=== PATIENT | female | born 1980 | race Caucasian/White ===

== ENCOUNTER 2017-12-09 17:16 | Emergency (ER) | payer BC ==
--- NOTE | 2017-12-09 18:16 | EDM.PDOC ---
ED HPI GENERAL MEDICAL PROBLEM - General Chief Complaint: Syncope Stated Complaint: SYNCOPE Time Seen by Provider: 12/09/17 18:15 Source of Information: Reports: Patient History Limitations: Reports: No Limitations - History of Present Illness INITIAL COMMENTS - FREE TEXT/NARRATIVE: 37-year-old female presents to the ED with a near syncopal-like event that occurred while he was sitting with family members in [place] they had ordered a meal and had not yet arrived but they were eating nodules and cheese. They were laughing and having a good time. Suddenly she started developed a blank stare became cool clammy and pallid. She stopped speaking. Family members noticed right away that something was not right. Patient also appreciated that she was not feeling right. She had a pressure sensation in her chest and a feeling of air hunger. decision was made to pack up there meal and make their way to the hospital. She was able to walk out of the restaurant on her own volition without feeling dizzy or lightheaded. She states was a good half far before she started to feel back to normal. His not known to be diabetic. She's had multiple sclerosis since 2005. No recent changes in treatment. She has no known autonomic nervous system dysfunction. Of note she underwent a laparoscopic- assisted vaginal hysterectomy on November 21. She had some bleeding per vagina presumably from the vaginal cuff for good 1012 days afterwards. She was advised to slow down her level of activity. She's had superficial thrombophlebitis in her left leg 3 but no true DVT. On away. Bowel function is normal. She is not known to have urinary tract infections and never lost control of bowel or bladder function. Does not have to use a gait aid. No visual acuity changes. No headache at this time. No nausea vomiting. she states the beeding per vagina sems tohav Onset: Today Onset Date: 12/09/17 Onset Time: 16:40 Duration: Minutes: Location: Reports: Generalized (Near syncopal-like event.) Quality: Reports: Other (No pain but discomfort in her chest or her sense of air hunger feeling hot) Severity: Moderate (prickly for a period of time) Improves with: Reports: Other Worsens with: Reports: None (Has improved spontaneously and now feels. Well back to normal.) Context: Reports: Other (Sitting and eating when she developed symptoms of like she was going to pass out.). Denies: Activity, Exercise, Lifting, Sick Contact , Trauma Associated Symptoms: Reports: Malaise, Shortness of Breath, Weakness ( Sensation like she was going to pass out initially. She never did however.). 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 ) - Related Data Allergies Allergy/AdvReac Type Severity Reaction Status Date / Time erythromycin base Allergy UNKNOWN Verified 12/09/17 17:45 [Erythromycin Base] BAND-AID Allergy UNKNOWN Uncoded 12/09/17 17:45 Home Meds: Home Meds Aspirin 1 tab PO DAILY 01/16/15 [History] Biotin 1 tab PO DAILY 01/16/15 [History] Dimethyl Fumarate [Tecfidera] 1 cap PO DAILY 12/09/17 [History] Ibuprofen 800 mg PO Q8HR PRN 12/09/17 [History] Vitamin E 1 cap PO DAILY 12/09/17 [History] oxyCODONE 0 mg PO Q4HR PRN 12/09/17 [History] Past Medical History Other Cardiovascular History: superficial blood clots to leg Neurological History: Reports: Other (See Below) Other Neuro History: MS diagnosed in 2005. She initially was treated with beta interferon but has been off of this for at least 2 years. - Past Surgical History Female Surgical History: Reports: Hysterectomy Musculoskeletal Surgical History: Reports: Other (See Below) Other Musculoskeletal Surgeries/Procedures:: MS Social & Family History - Tobacco Use Smoking Status *Q: Never Smoker - Caffeine Use Caffeine Use: Reports: Coffee, Soda - Recreational Drug Use Recreational Drug Use: No - Living Situation & Occupation Living situation: Reports: Single Occupation: Employed ED ROS GENERAL - Review of Systems Review Of Systems: See Below Constitutional: Reports: Malaise, Weakness, Fatigue. Denies: Fever, Chills, Night Sweats, Diaphoresis, Decreased Appetite, Weight Loss, Weight Gain HEENT: Reports: Hearing Loss (Impaired hearing left ear.) Respiratory: Reports: Shortness of Breath ( Out where an aid.). Denies: Wheezing, Pleuritic Chest Pain ( transiently now feels back to normal. ), Cough , Sputum, Hemoptysis Cardiovascular: Reports: Lightheadedness. Denies: Chest Pain, Blood Pressure Problem, Claudication, Dyspnea on Exertion, Edema, Orthopnea, Palpitations Endocrine: Reports: Fatigue (While in the restaurant today.) GI/Abdominal: Reports: Abdominal Pain (Still little tender around the umbilicus where she had laparoscopic-assisted vaginal hysterectomy 3 weeks ago.). Denies : Constipation, Diarrhea, Decreased Appetite, Distension, Flatus, Hematemesis, Hematochezia, Melena, Mucous in Stool, Nausea, Stool Incontinence, Vomiting, Other : Reports: Frequency. Denies: Dysuria Musculoskeletal: Reports: Joint Pain (Some sometimes knees and low back pain.) Skin: Reports: Pallor Psychiatric: Reports: No Symptoms Hematologic/Lymphatic: Reports: No Symptoms Immunologic: Reports: No Symptoms - Physical Exam Exam: See Below Exam Limited By: No Limitations General Appearance: Alert, WD/WN, No Apparent Distress, Mild Distress Eye Exam: Bilateral Eye: Normal Inspection, Other (Peripheral margins are slightly pallid.) Throat/Mouth: Normal Inspection, Normal Lips, Normal Teeth, Normal Oropharynx Head Exam: Atraumatic, Normocephalic Neck: Normal Inspection, Supple, Non-Tender, Full Range of Motion. No: Lymphadenopathy (L), Lymphadenopathy (R) Respiratory/Chest: No Respiratory Distress, Lungs Clear, Normal Breath Sounds, No Accessory Muscle Use, Other Cardiovascular: Normal Peripheral Pulses (O2 sats are 100% on room air. Respiratory rate of 18/m.), Regular Rate, Rhythm, No Edema, No Gallop, No Murmur GI/Abdominal: Normal Bowel Sounds, Soft, No Organomegaly, No Mass, Tender ( Slight tenderness around the umbilical laparoscopic incision but it is healing well.) Neuro Exam (Abbreviated): Alert, Oriented, CN II-XII Intact, Normal Cognition, Normal Gait, No Motor/Sensory Deficits Back Exam: Normal Inspection, Full Range of Motion. No: CVA Tenderness (L), CVA Tenderness (R) Extremities: Normal Inspection, Normal Range of Motion, Non-Tender, No Pedal Edema, Other Psychiatric: Normal Affect, Normal Mood Skin Exam: Warm, Dry (No clinical evidence of a DVT in either extremity.), Intact, Normal Color, Pallor (Mild pallor.) EKG INTERPRETATION EKG Date: 12/09/17 Time: 18:40 Rhythm: NSR Rate (Beats/Min): 74 [place]: Normal P-Wave: Present QRS: Normal ST-T: Normal QT: Normal EKG Interpretation Comments: Normal ECG. No signs of ischemia or arrhythmias Course - Vital Signs Last Recorded V/S: Last Vital Signs Temp 36.9 C 12/09/17 17:37 Pulse 82 12/09/17 17:37 Resp 18 12/09/17 17:37 BP 137/80 12/09/17 17:37 Pulse Ox 100 12/09/17 17:37 Orthostatic Blood Pressure [ 123/72 Standing] Orthostatic Blood Pressure [ 125/77 Sitting] Orthostatic Blood Pressure [ 134/71 Supine] - Orders/Labs/Meds Orders: Active Orders 24 hr Category Date Time Status EKG Documentation Completion [RC] STAT Care 12/09/17 18:31 Active Chest 1V Frontal [CR] Stat Exams 12/09/17 18:31 Taken Sodium Chloride 0.9% [Normal Saline] 100 ml Med 12/09/17 20:15 Active IV ASDIRECTED Sodium Chloride 0.9% [Saline Flush] Med 12/09/17 20:09 Active 10 ml FLUSH ONETIME PRN Medication Orders Sodium Chloride (Normal Saline) 100 mls @ 65 mls/hr IV ASDIRECTED NORTH Last Admin: 12/09/17 20:34 Dose: 65 mls/hr Sodium Chloride (Saline Flush) 10 ml FLUSH ONETIME PRN PRN Reason: IV FLUSH Last Admin: 12/09/17 20:34 Dose: 10 ml Labs: Laboratory Tests 12/09/17 12/09/17 12/09/17 Range/Units 18:19 18:19 18:19 WBC 12.27 H (3.98-10.04) K/mm3 RBC 5.52 H (3.98-5.22) M/mm3 Hgb 14.9 (11.2-15.7) gm/L Hct 45.7 H (34.1-44.9) % MCV 82.8 (79.4-94.8) fl MCH 27.0 (25.6-32.2) pg MCHC 32.6 (32.2-35.5) g/dl RDW Std Deviation 44.2 (36.4-46.3) fL Plt Count 338 (182-369) K/mm3 MPV 10.5 (9.4-12.3) fl Neutrophils % (Manual) 85 H (40-60) % Band Neutrophils % 0 (0-10) % Lymphocytes % (Manual) 7 L (20-40) % Atypical Lymphs % 0 % Monocytes % (Manual) 8 (2-10) % Eosinophils % (Manual) 0 L (0.7-5.8) % Basophils % (Manual) 0 L (0.1-1.2) Platelet Estimate Adequate Plt Morphology Comment Normal RBC Morph Comment Normal PT 10.4 (9.5-12.1) SECONDS INR 0.95 APTT 26 (24-31) SECONDS D-Dimer, Quantitative (0.19-0.50) mg/L Sodium 136 (136-145) mEq/L Potassium 3.7 (3.5-5.1) mEq/L Chloride 102 (98-107) mEq/L Carbon Dioxide 27 (21-32) mEq/L Anion Gap 10.7 (5-15) BUN 17 (7-18) mg/dL Creatinine 0.8 (0.55-1.02) mg/dL Est Cr Clr Drug Dosing 82.33 mL/min Estimated GFR (MDRD) > 60 (>60) mL/min BUN/Creatinine Ratio 21.3 H (14-18) Glucose 86 (74-106) mg/dL Calcium 8.2 L (8.5-10.1) mg/dL Magnesium 1.6 L (1.8-2.4) mg/dl Total Bilirubin 0.9 (0.2-1.0) mg/dL AST 17 (15-37) U/L ALT 18 (14-59) U/L Alkaline Phosphatase 64 (46-116) U/L CK-MB (CK-2) < 0.5 (0-3.6) ng/ml Troponin I < 0.017 (0.00-0.056) ng/mL C-Reactive Protein 1.3 H* (<1.0) mg/dL Total Protein 7.2 (6.4-8.2) g/dl Albumin 3.6 (3.4-5.0) g/dl Globulin 3.6 gm/dL Albumin/Globulin Ratio 1.0 (1-2) Urine Color (Yellow) Urine Appearance (Clear) Urine pH (5.0-8.0) Ur Specific Dewitt (1.005-1.030) Urine Protein (Negative) Urine Glucose (UA) (Negative) Urine Ketones (Negative) Urine Occult Blood (Negative) Urine Nitrite (Negative) Urine Bilirubin (Negative) Urine Urobilinogen (0.2-1.0) Ur Leukocyte Esterase (Negative) Urine RBC (0-5) /hpf Urine WBC (0-5) /hpf Ur Epithelial Cells (0-5) /hpf Urine Bacteria (FEW) /hpf Urine Mucus (FEW) /hpf 12/09/17 12/09/17 Range/Units 18:19 18:52 WBC (3.98-10.04) K/mm3 RBC (3.98-5.22) M/mm3 Hgb (11.2-15.7) gm/L Hct (34.1-44.9) % MCV (79.4-94.8) fl MCH (25.6-32.2) pg MCHC (32.2-35.5) g/dl RDW Std Deviation (36.4-46.3) fL Plt Count (182-369) K/mm3 MPV (9.4-12.3) fl Neutrophils % (Manual) (40-60) % Band Neutrophils % (0-10) % Lymphocytes % (Manual) (20-40) % Atypical Lymphs % % Monocytes % (Manual) (2-10) % Eosinophils % (Manual) (0.7-5.8) % Basophils % (Manual) (0.1-1.2) Platelet Estimate Plt Morphology Comment RBC Morph Comment PT (9.5-12.1) SECONDS INR APTT (24-31) SECONDS D-Dimer, Quantitative 2.90 H (0.19-0.50) mg/L Sodium (136-145) mEq/L Potassium (3.5-5.1) mEq/L Chloride (98-107) mEq/L Carbon Dioxide (21-32) mEq/L Anion Gap (5-15) BUN (7-18) mg/dL Creatinine (0.55-1.02) mg/dL Est Cr Clr Drug Dosing mL/min Estimated GFR (MDRD) (>60) mL/min BUN/Creatinine Ratio (14-18) Glucose (74-106) mg/dL Calcium (8.5-10.1) mg/dL Magnesium (1.8-2.4) mg/dl Total Bilirubin (0.2-1.0) mg/dL AST (15-37) U/L ALT (14-59) U/L Alkaline Phosphatase (46-116) U/L CK-MB (CK-2) (0-3.6) ng/ml Troponin I (0.00-0.056) ng/mL C-Reactive Protein (<1.0) mg/dL Total Protein (6.4-8.2) g/dl Albumin (3.4-5.0) g/dl Globulin gm/dL Albumin/Globulin Ratio (1-2) Urine Color Amie H (Yellow) Urine Appearance Slt cloudy H (Clear) Urine pH 6.0 (5.0-8.0) Ur Specific Dewitt > or = 1.030 (1.005-1.030) Urine Protein Negative (Negative) Urine Glucose (UA) Negative (Negative) Urine Ketones Trace H (Negative) Urine Occult Blood Negative (Negative) Urine Nitrite Negative (Negative) Urine Bilirubin Negative (Negative) Urine Urobilinogen 0.2 (0.2-1.0) Ur Leukocyte Esterase Negative (Negative) Urine RBC 0-5 (0-5) /hpf Urine WBC 0-5 (0-5) /hpf Ur Epithelial Cells 0-5 (0-5) /hpf Urine Bacteria Few (FEW) /hpf Urine Mucus Not seen (FEW) /hpf Meds: Medications Generic Name Dose Route Start Last Admin Trade Name Konstantin PRN Reason Stop Dose Admin Sodium Chloride 100 mls @ 65 mls/hr 12/09/17 20:15 12/09/17 20:34 Normal Saline IV 65 mls/hr ASDIRECTED NORTH Administration Sodium Chloride 10 ml 12/09/17 20:09 12/09/17 20:34 Saline Flush FLUSH 10 ml ONETIME PRN Administration IV FLUSH Discontinued Medications Generic Name Dose Route Start Last Admin Trade Name Freq PRN Reason Stop Dose Admin Iopamidol 100 ml 12/09/17 20:09 12/09/17 20:34 [id number] (76%) IVPUSH 12/09/17 20:10 100 ml ONETIME ONE Administration Iopamidol 50 ml 12/09/17 20:09 12/09/17 20:34 [id number] (76%) IVPUSH 12/09/17 20:10 50 ml ONETIME ONE Administration - Radiology Interpretation Free Text/Narrative:: 29-year-old female presents the ED after experiencing a near syncopal event while in the seated position and eating out in [place]. She was with family members are appreciated her sudden loss of verbal communication. She appeared to be somewhat dazed confused and pallid the food had just arrived and they decided to pack and up and make their way to medical care. Is quite quiet in the car and she continued to feel abnormal for about a half an hour. She now feels pretty well back to normal. Examination vital signs including orthostatic BPs are all normal. ECG is sinus rhythm at 74/m no abnormalities appreciated. There are no arrhythmias or signs of ischemia. He did appreciate a sense of pressure in her chest transiently during this event. She recognized that things weren't right and little confused but there was no seizure-like activity. Of note she is about 3 weeks vaginal hysterectomy. This is laparoscopic- assisted. This places her at slight risk of increased pulmonary embolism. She has met multiple sclerosis 12 years which may or may not be playing a component with autonomic nervous system dysfunction. At present her vital signs are normal including her02 sats are 100%. Plan 1 view chest x-ray routine labs to be performed and a urinalysis. Part of the assessment will be a d-dimer as well. - Re-Assessments/Exams Free Text/Narrative Re-Assessment/Exam: 12/09/17 19:17: Parts of her labs are back. White count is 12.27. Differential is 85% neutrophils no bands. Hemoglobin is 14.9 with hematocrit of 45.7. Platelet count is 338,000. PT is 10.4 and INR 0.95. PTT is 26. D-dimer did come back elevated at 2.90. Chemistry is pending. It appears she will require a CT pulmonary angiogram but I have to wait her creatinine function. 12/09/17 19:37 chest x-ray done portably. Cardiac silhouette is upper limits of normal but may be magnified by portable technique. Visualized portions the lungs are clear. Great vessels are normal. 12/09/17 19:39 19:37: The remainder labs are now back. Sodium is 136 with potassium of 3.7. Chloride is 102 with a bicarbonate 27. Anion gap is 10.7. BUN is 17 with a creatinine of 0.8. She therefore is a candidate for CT pulmonary angiogram. Glucose is 86 with a calcium of 8.2. Magnesium is slightly low at 1.6. Bilirubin is 0.9 with normal liver function otherwise. Urinalysis is negative for any infective process. Cardiac markers are normal. C-reactive protein is 1.3. Will therefore proceed with CT pulmonary angiographic to rule out PE. 12/09/17 20:28 when I had spoken to the patient about medications used to treat potential pulmonary embolism she indicated that she had problems with Xarelto in the past causing severe hemorrhage from her uterus. She prefers therefore not to use this medication. That leaves our only other option to be Eliquis. 12/09/17 21:32 CT pulmonary angiogram is reported by radiology as not showing any evidence of pulmonary embolism. Small liver cyst within the right lobe of the liver measuring approximate 1.1 cm. Lung window settings were reviewed which shows no per parenchymal densities and no pleural effusions or pneumothorax. Therefore the cause of her near syncopal event tonight is unclear. It's like she developed transient hypotension for a period of time for unclear etiology. It may or may not be related to multiple sclerosis versus with autonomic nervous system dysfunction. At this point no treatment was offered as none is really available. I would adopt a wait and see approach to see if further problems do occur that would require further investigations. Certainly while she was here her heart rate stayed in the 70s and 80s with no signs of arrhythmia. O2 sats remained at 100% throughout her stay in the hospital. Patient will be discharged to home to continue current medications. Departure - Departure Time of Disposition: 21:29 Disposition: Home, Self-Care 01 Condition: Fair Clinical Impression: Near syncope - Discharge Information Referrals: PCP,Not In Area [Primary Care Provider] - Forms: ED Department Discharge Additional Instructions: Evaluation in the emergency room tonight in regards to a near syncopal or fainting spell. Current well seated in a restaurant eating. Thorough evaluation was carried out in the emergency room tonight and no cause for this occurrence has been identified. It may be related to having multiple sclerosis with autonomic nervous system dysfunction transiently. There is no history to suggest you have suffered any form of seizure. The only lab work that came back abnormal was the elevated d-dimer which is likely related to recent vaginal hysterectomy surgery and bleeding after this. CT pulmonary angiogram did not reveal any blood clots within the lungs that would account for a near syncopal event. Monitoring of your heart for the 3 hours urine ED did not show any abnormalities of rhythm i.e. low or fast heart rate that could cause you to pass out Therefore no definitive cause for tonight's events could be identified. Treatment is time to see if it happens again. If it is going to happen again and will do so likely within the next 3 weeks at present is related at all to multiple sclerosis. Time I would suggest no change in medications. No activities as per your normal. Of course follow-up your few personal physician/neurologist if further problems do occur. - My Orders Last 24 Hours: My Active Orders 12/09/17 18:31 EKG Documentation Completion [RC] STAT Chest 1V Frontal [CR] Stat 12/09/17 20:09 Sodium Chloride 0.9% [Saline Flush] 10 ml FLUSH ONETIME PRN 12/09/17 20:15 Sodium Chloride 0.9% [Normal Saline] 100 ml IV ASDIRECTED - Assessment/Plan Last 24 Hours: My Active Orders 12/09/17 18:31 EKG Documentation Completion [RC] STAT Chest 1V Frontal [CR] Stat 12/09/17 20:09 Sodium Chloride 0.9% [Saline Flush] 10 ml FLUSH ONETIME PRN 12/09/17 20:15 Sodium Chloride 0.9% [Normal Saline] 100 ml IV ASDIRECTED
[2017-12-09] MEDS ORDERED: Iopamidol 755 MG/ML 50 ML Bottle IVPUSH ONE (20:09)
[2017-12-09] MEDS ORDERED: Sodium Chloride 0.9% 10 ML Syringe FLUSH PRN (20:09)
[2017-12-09] MEDS ORDERED: Iopamidol 755 Mg/ML 100 ML Bottle IVPUSH ONE (20:09)
[2017-12-09] MEDS ORDERED: Sodium Chloride 0.9% 100 ML IV SCH (20:15)
--- NOTE | 2017-12-09 21:06 | CT ---
CT chest Technique: Volumetric acquisition was obtained from above the lung apices inferiorly through the lung bases. Intravenous contrast was utilized. Study performed as a pulmonary angiogram protocol. Findings: Pulmonary arteries are fairly well-opacified. There are no filling defects being seen to indicate pulmonary embolism. Mediastinum and hilar regions show no adenopathy or mass. No axillary adenopathy is seen. No pericardial effusion is seen. Small cyst is identified within the right lobe of the liver measuring approximately 1.1 cm. Other visualized upper abdominal structures are within normal limits. Lung window settings were reviewed which shows no acute parenchymal densities. No pleural effusions or pneumothorax is seen. Bone window settings were reviewed which appear within normal limits for the patient's age. Impression: 1. No findings of pulmonary embolism. 2. Small liver cyst. 3. Other portions of the CT exam of the chest appear within normal limits. Diagnostic code #1
[2017-12-09 21:46] VITALS: BP 141/84
--- NOTE | 2017-12-10 06:53 | CR ---
Chest: Portable view of the chest was obtained. Comparison: No prior chest x-ray. Heart size and mediastinum are within normal limits for portable technique. Lungs are clear with no acute parenchymal densities. Bony structures are grossly intact. Impression: 1. Nothing acute is seen on portable chest x-ray. Diagnostic code #1
== END 2017-12-09 21:40 | disposition home or self-care (01) ==
LOC: JD.ED 17:16
DX: R55 Syncope and collapse (principal); Z79.82 Long term (current) use of aspirin; Z79.899 Other long term (current) drug therapy
CPT/HCPCS: 36415; 71045; 71275; 80053; 81001; 82553; 83735; 84484; 85007; 85027; 85379; 85610; 85730; 86140; 93005; 99285; J7030; J7050; Q9967; 93010; 99284-25